=== PATIENT | male | born 1975 | race Caucasian/White ===

== ENCOUNTER 2020-12-21 17:30 | Observation (INO) ==
[2020-12-21] MEDS ORDERED: Naloxone 0.4 MG/ML INJ IVP PRN (20:08)
[2020-12-21] MEDS ORDERED: Baclofen 10 MG TABLET PO PRN (20:09)
[2020-12-21] MEDS ORDERED: Acetaminophen 325 MG TABLET PO PRN (20:09)
[2020-12-21] MEDS: Sennosides/Docusate Sodium TABLET PO SCH (21:07)
[2020-12-21] MEDS: Gabapentin 400 MG CAPSULE PO SCH (21:07)
[2020-12-21] MEDS: *HR* OxyCODONE Immed Rel 15 MG TABLET PO SCH (21:07)
[2020-12-21] MEDS: Furosemide 20 MG TABLET PO SCH (23:26)
[2020-12-22] MEDS ORDERED: *HR* OxyCODONE Immed Rel 15 MG TABLET PO SCH
[2020-12-22] MEDS: Simethicone 80 MG TAB.CHEW PO SCH ×5 (01:12→17:54)
[2020-12-22] MEDS: *HR* OxyCODONE Immed Rel 15 MG TABLET PO SCH ×3 (03:06→11:54)
[2020-12-22 04:53] LABS: Basophils % 0.2 %; Eosinophils # 0.1 K/mcL (0.0-0.6); Eosinophils % 0.6 %; Hematocrit 32.8 % (37.5-50.1); Hemoglobin 10.4 g/dL (12.9-16.9); Immature Granulocytes % 1.3 % (0-4); Lymphocytes # 1.8 K/mcL (0.6-4.6); Lymphocytes % 9.3 %; Mean Corpuscular HGB Conc 31.7 g/dL (31.6-35.5); Mean Corpuscular Hemoglobin 27.4 pg (28.0-33.3); Mean Corpuscular Volume 86.5 fL (83.0-100.0); Mean Platelet Volume 9.5 fL (9.4-12.4); Monocytes # 1.2 K/mcL (0.0-1.3); Monocytes % 6.6 %; Neutrophils # 15.4 K/mcL (1.6-8.9); Platelet Count 392 K/mcL (140-400); Red Blood Count 3.79 M/mcL (4.19-5.50); Red Cell Distribution Width 14.8 % (11.5-14.5); White Blood Count 18.8 K/mcL (4.3-11.1)
[2020-12-22 05:12] LABS: BUN/Creatinine Ratio 24 (6-26); Blood Urea Nitrogen 14 mg/dL (6-20); Calcium 8.5 mg/dL (8.6-10.3); Carbon Dioxide 29 mEq/L (23-29); Chloride 97 mEq/L (98-107); Glucose 130 mg/dL (70-105); Osmolality,Calculated 280 (280-300); Potassium 3.1 mEq/L (3.5-5.1); Sodium 134 mEq/L (136-145); eGFR For African Americans > 60 (> 60); eGFR For Non-African Americans > 60 (> 60)
[2020-12-22] MEDS ORDERED: Vancomycin 1,500 MG/265 ML IV.SOLN IVPB SCH ×2 (07:00→08:00)
[2020-12-22] MEDS ORDERED: Potassium Effervescent 25 MEQ TABLET.EFF PO ONE (07:45)
[2020-12-22] MEDS: Piperacillin/Tazobactam 3.375 GM in 0.9 % Sodium Chloride Mini Bag 100 ML IVPB SCH ×2 (08:01→15:18)
[2020-12-22] MEDS: Sennosides/Docusate Sodium TABLET PO SCH (08:02)
[2020-12-22] MEDS: Furosemide 20 MG TABLET PO SCH ×2 (08:02→17:54)
[2020-12-22] MEDS: Gabapentin 400 MG CAPSULE PO SCH ×2 (08:02→15:18)
[2020-12-22] MEDS ORDERED: Cyanocobalamin (B-12) 1,000 MCG TABLET PO SCH (09:00)
[2020-12-22] MEDS ORDERED: Gadolinium Contrast Agent (WT Based) IV PRN (09:40)
[2020-12-22] MEDS ORDERED: Acetaminophen 325 MG TABLET PO ONE (09:47)
[2020-12-22 14:52] VITALS: BP 123/79
== END 2020-12-22 19:19 | disposition short-term general hospital (02) ==
LOC: CDU → SUATTDRO 19:11 → 2NNU 23:14 → 3ANU 12-22 13:48
PROVIDERS: ADMIT Internal Medicine; ATTEND Internal Medicine